=== PATIENT | male | born 1985 | race Caucasian/White ===

== ENCOUNTER 2016-10-15 21:21 | Emergency (ER) | payer MEDICAID ==
[2016-10-15] MEDS ORDERED: FAMOTIDINE 20 MG TABLET PO STA (22:04)
[2016-10-15] MEDS ORDERED: LIDOCAINE VISCOUS 2% 15 ML UDC MM STA (22:04)
[2016-10-15] MEDS ORDERED: MAG HYDROX/AL HYDROX/SIMETH 30 ML UDC PO STA (22:04)
[2016-10-15] MEDS ORDERED: FAMOTIDINE 20 MG TABLET ONE (22:13)
[2016-10-15] MEDS ORDERED: LIDOCAINE VISCOUS 2% 15 ML UDC MM ONE (22:13)
[2016-10-15] MEDS ORDERED: MAG HYDROX/AL HYDROX/SIMETH 30 ML UDC ONE (22:14)
== END 2016-10-15 22:57 | disposition left against medical advice (07) ==
DX: R07.9 Chest pain, unspecified (principal); F17.200 Nicotine dependence, unspecified, uncomplicated; Z53.20 Procedure and treatment not carried out because of patient's decision for unspecified reasons
CPT/HCPCS: 36415; 71020; 80053; 83690; 84484; 85025; 93005; 93010; 99283; 99284; A9270

== ENCOUNTER 2016-10-20 19:48 | Emergency (ER) | payer MEDICAID ==
[2016-10-20] MEDS ORDERED: IOPAMIDOL-300 100 ML VIAL IVP ONE (22:08)
== END 2016-10-20 22:55 | disposition home or self-care (01) ==
DX: R07.89 Other chest pain (principal); F17.200 Nicotine dependence, unspecified, uncomplicated; R94.5 Abnormal results of liver function studies; Z79.899 Other long term (current) drug therapy
CPT/HCPCS: 36415; 71275; 80053; 83690; 84443; 84484; 85025; 85379; 93005; 93010; 99283; 99284; Q9967

== ENCOUNTER 2016-11-04 12:47 | Outpatient (CLI) | payer MEDICAID | END 2016-11-04 12:48 | disposition home or self-care (01) | DX: F10.10 Alcohol abuse, uncomplicated (principal) ==

== ENCOUNTER 2017-01-19 08:00 | Outpatient (CLI) | payer MEDICAID | END 2017-01-19 08:01 | disposition home or self-care (01) | DX: R63.4 Abnormal weight loss (principal) ==

== ENCOUNTER 2017-01-19 16:20 | Outpatient (CLI) | payer MEDICAID | END 2017-01-19 16:21 | disposition home or self-care (01) | DX: M25.562 Pain in left knee (principal) ==

== ENCOUNTER 2017-02-03 09:57 | Emergency (ER) | payer MEDICAID ==
[2017-02-03 10:10] VITALS: BP 119/72
--- NOTE | 2017-02-03 10:57 | ED Physician Documentation ---
PD HPI UPPER EXT INJURY - Stated complaint Stated Complaint: L HAND INJURY - Chief complaint Chief Complaint: Ext Problem - History obtained from History obtained from: Patient, Family - History of Present Illness Location: Right, Finger (index) Type of injury: Blunt / blow Where injury occurred: Home Timing - onset: Yesterday Timing - duration: Days (1) Timing - details: Abrupt onset, Still present Improved by: Rest, Immobilization Worsened by: Moving, Palpating Associated symptoms: Swelling, Other (pain into the forearm). No: Weakness, Numbness, Tingling Contributing factors: No: Anticoagulated Similar symptoms before: Has not had sx before Recently seen: Not recently seen Review of Systems Constitutional: denies: Fever Eyes: denies: Decreased vision Ears: denies: Ear pain Nose: denies: Congestion Respiratory: denies: Dyspnea, Cough GI: denies: Vomiting Musculoskeletal: reports: Extremity pain. denies: Neck pain, Back pain Neurologic: denies: Generalized weakness, Focal weakness, Numbness PD PAST MEDICAL HISTORY - Past Medical History Cardiovascular: Other Respiratory: None Neuro: None Endocrine/Autoimmune: None GI: Ulcers, Other : None HEENT: None Psych: Claustrophobia Musculoskeletal: None Derm: None - Past Surgical History Past Surgical History: Yes General: Appendectomy - Present Medications Home Medications: Ambulatory Orders Medication Instructions Recorded Confirmed Butalb/Acetaminophen/Caffeine 1 each PO Q6H #14 capsule 07/09/16 [Fioricet 50-300-40 mg Capsule] traZODone [Desyrel] 50 mg PO HS 07/09/16 07/09/16 - Allergies Allergies/Adverse Reactions: Allergies Allergy/AdvReac Type Severity Reaction Status Date / Time No Known Drug Allergies Allergy Verified 10/12/15 16:18 - Social History Does the pt smoke?: Yes Smoking Status: Current every day smoker Does the pt drink ETOH?: Yes ETOH Use: Beer Does the pt have substance abuse?: No - Immunizations Immunizations are current?: No Immunizations: TDAP >10years/unknown - POLST Patient has POLST: No PD ED PE NORMAL - Vitals Vital signs reviewed: Yes (normal ) - General General: Alert and oriented X 3, No acute distress, Well developed/nourished - HEENT HEENT: Atraumatic, PERRL, EOMI - Respiratory Respiratory: No respiratory distress - Derm Derm: Normal color, Warm and dry, No rash - Extremities Extremities: No deformity, No edema, Other (There is a small abrasion to the dorsum of the left index finger over the proximal phlange. He is able to move the finger in a ROM with pain and the distal N/V are intact. There is no sign of infection in the soft tissues associated. ) - Neuro Neuro: Alert and oriented X 3, No motor deficit, No sensory deficit, Normal speech - Psych Psych: Normal mood, Normal affect Results - Vitals Vitals: Vital Signs - 24 hr 02/03/17 10:05 Temperature 36.6 C Heart Rate 96 Respiratory 20 Rate Blood Pressure 119/72 O2 Saturation 98 Oxygen O2 Source Room air - Rads (name of study) left fingers Radiology: Prelim report reviewed (Impression: Soft tissue swelling, but no evidence of fracture or radiopaque foreign body.), EMP read indepedently, See rad report Procedures - Splint (location) index finger Splint applied by: Tech Type of splint: Metal foam finger splint Other: Patient tolerated well, No complications, Neurovascular intact, Good alignment Departure - Departure Disposition: 01 Home, Self Care Clinical Impression: Finger contusion Qualifiers: Encounter type: initial encounter Finger: index finger Damage to nail status: without damage Laterality: left Qualified Code(s): S60.022A - Contusion of left index finger without damage to nail, initial encounter Condition: Stable Instructions: ED Contusion Finger Follow-Up: Danii Contreras ARNP [Primary Care Provider] -
--- NOTE | 2017-02-03 11:33 | XRAY Preliminary Report ---
Exam: XR Finger(s) LT IMPRESSION: Soft tissue swelling, but no evidence of fracture or radiopaque foreign body. [facility] SITE ID: [id number]
--- NOTE | 2017-02-03 11:36 | XRAY Report ---
EXAM: LEFT SECOND DIGIT RADIOGRAPHY EXAM DATE: 02/03/2017 11:20 AM. CLINICAL HISTORY: Prox index finger contusion . COMPARISON: 05/27/2009. TECHNIQUE: 3 views. FINDINGS: Bones: Normal. No fracture or bone lesion. Joints: Normal. No subluxations. Soft Tissues: Proximal soft tissue swelling is present. IMPRESSION: Soft tissue swelling, but no evidence of fracture or radiopaque foreign body. [facility] Referring Provider Line: [phone] SITE ID: [id number]
== END 2017-02-03 11:43 | disposition home or self-care (01) ==
LOC: ED 09:57
DX: S60.022A Contusion of left index finger without damage to nail, initial encounter (principal); W22.8XXA Striking against or struck by other objects, initial encounter; Y92.019 Unspecified place in single-family (private) house as the place of occurrence of the external cause
CPT/HCPCS: 29130; 73140; 99283

== ENCOUNTER 2017-10-20 15:03 | Outpatient (CLI) | payer MEDICAID ==
[2017-10-20 15:47] LABS: HGB - HEMOGLOBIN 13.8 g/dL (14.0-18.0); MEAN CORPUSCULAR HEMOGLOBIN 32.4 pg (27.0-31.0); MEAN CORPUSCULAR HGB CONC 34.3 g/dL (32.0-36.0); MEAN CORPUSCULAR VOLUME 94.5 fL (80.0-94.0); MEAN PLATELET VOLUME 8.5 fL (7.4-11.4); RED BLOOD COUNT 4.26 10^6/uL (4.70-6.10); RED CELL DISTRIBUTION WIDTH 12.8 % (12.0-15.0); WHITE BLOOD COUNT 6.8 x10^3/uL (4.8-10.8)
[2017-10-20 15:58] LABS: % IRON SATURATION 29 % (20-50); ALBUMIN 4.1 g/dL (3.2-5.5); ALBUMIN/GLOBULIN RATIO 1.4 (1.0-2.2); ALKALINE PHOSPHATASE 40 IU/L (42-121); ALT ALANINE AMINOTRANSFERASE 28 IU/L (10-60); AST ASPARTATE AMINOTRANSFERASE 30 IU/L (10-42); BILIRUBIN,TOTAL 0.5 mg/dL (0.2-1.0); BUN - BLOOD UREA NITROGEN 16 mg/dL (6-20); CALCIUM 8.8 mg/dL (8.5-10.3); CARBON DIOXIDE - CO2 26 mmol/L (21-32); CHLORIDE 103 mmol/L (101-111); GFR - MDRD 86 (>89); GLUCOSE 81 mg/dL (70-100); IRON 96 ug/dL (45-182); SODIUM 139 mmol/L (135-145); TOTAL IRON BINDING CAPACITY 330 ug/dL (250-450); TOTAL PROTEIN 7.1 g/dL (6.7-8.2); TRANSFERRIN 236 mg/dL (180-329)
[2017-10-20 16:47] LABS: CRP - C-REACTIVE PROTEIN < 1.0 mg/dL (0-1.0)
[2017-10-20 16:50] LABS: RHEUMATOID FACTOR NEGATIVE (Negative)
--- NOTE | 2017-10-21 10:18 | Ultrasound Report ---
SCROTAL DUPLEX: 10/20/2017 CLINICAL INDICATION: Right-sided pain. TECHNIQUE: Real-time sonographic vascular imaging was performed by the head of conservation through the scrotum utilizing both color-flow and Doppler spectral analysis. Multiple account executive sales representative static images were saved for review. FINDINGS: The right testicle measures 4.7 x 3.4 x 2.2 cm, and the left testicle measures 4.7 x 3.0 x 2.0 cm. Both testicles demonstrate normal flow and echotexture. Trace hydroceles are present. A 3 mm right epididymal head cyst is noted. No varicocele or hernia is identified. IMPRESSION: TRACE BILATERAL HYDROCELES. NO EVIDENCE OF TESTICULAR TORSION OR MASS. TD: 10/21/2017 10:16
[2017-10-22 13:36] LABS: ANA SCREEN NEGATIVE (NEGATIVE)
== END 2017-10-20 15:04 | disposition home or self-care (01) ==
LOC: DI 15:03
PROVIDERS: ATTEND Nurse Practitioner Family
DX: N43.3 Hydrocele, unspecified (principal); M25.50 Pain in unspecified joint
CPT/HCPCS: 36415; 76870; 80053; 83540; 84466; 85651; 86038; 86140; 86430; 93975

== ENCOUNTER 2017-10-23 15:03 | Outpatient (CLI) | payer MEDICAID ==
--- NOTE | 2017-10-23 17:36 | XRAY Report ---
TWO VIEW LEFT ELBOW: 10/23/2017 CLINICAL INDICATION: Arthralgia. FINDINGS: Frontal and lateral views of the left elbow demonstrate no evidence of fracture or dislocation. The joint spaces are preserved. No effusion is present. IMPRESSION: NORMAL LEFT ELBOW. TD: 10/23/2017 17:20
== END 2017-10-23 15:04 | disposition home or self-care (01) ==
LOC: DI.S 15:03
PROVIDERS: ATTEND Nurse Practitioner Family
DX: M25.522 Pain in left elbow (principal)

== ENCOUNTER 2017-10-26 08:12 | Outpatient (CLI) | payer MEDICAID ==
[2017-10-26 12:35] LABS: HB2 TOTAL 16.4 g/dL; HEMOGLOBIN A1C 0.59 g/dL; HEMOGLOBIN A1C % 5.4 % (4.6-6.2)
[2017-10-26 12:38] LABS: THYROID STIMULATING HORMONE 1.62 uIU/mL (0.34-5.60)
== END 2017-10-26 08:13 | disposition home or self-care (01) ==
LOC: LAB.F 08:12
PROVIDERS: ATTEND Nurse Practitioner Family
DX: D64.9 Anemia, unspecified (principal); M25.50 Pain in unspecified joint; R61 Generalized hyperhidrosis; R63.4 Abnormal weight loss
CPT/HCPCS: 36415; 82607; 83036; 84403; 84443

== ENCOUNTER 2017-12-01 08:06 | Outpatient (CLI) | payer MEDICAID ==
--- NOTE | 2017-12-01 10:59 | MRI Report ---
EXAM: LEFT ELBOW MRI WITHOUT CONTRAST EXAM DATE: 12/01/2017 09:01 AM. CLINICAL HISTORY: Chronic left elbow pain. COMPARISON: 10/23/2017 radiograph. TECHNIQUE: Multiplanar, multisequence T1-weighted and fluid-sensitive sequences of the elbow without contrast. Other: None. FINDINGS: Bones: Edema in the olecranon is presumed to represent bony contusion. No fractures. Articular Cartilage: Unremarkable. Ligaments: The ulnar collateral, lateral ulnar collateral, radial collateral, and annular ligaments a re intact. Tendons: The common flexor tendon origin is unremarkable. There is a intrasubstance tear of the commo n extensor tendon origin that is 3 mm in length and involves 50% of the cross-sectional area. Edema i s also seen in the tendon. The distal biceps, brachialis, and triceps tendons are unremarkable. Musculature: No edema or fatty atrophy. Other: The cubital tunnel and ulnar nerve are unremarkable. No effusion. The subcutaneous tissues are unremarkable. IMPRESSION: 1. Bony contusion of the olecranon. 2. Small partial tear of the common extensor tendon origin with tendinosis. [facility] MUSCULOSKELETAL [facility]IOLOGY SECTION Referring Provider Line: [phone] SITE ID: [id number]
== END 2017-12-01 08:07 | disposition home or self-care (01) ==
LOC: DI 08:06
PROVIDERS: ATTEND Orthopaedic Surgery
DX: S56.512A Strain of other extensor muscle, fascia and tendon at forearm level, left arm, initial encounter (principal); S50.12XA Contusion of left forearm, initial encounter

== ENCOUNTER 2018-02-05 13:14 | Outpatient (CLI) | payer MEDICAID ==
[2018-02-05 18:56] LABS: BASOPHILS # (AUTO) 0.1 10^3/uL (0.0-0.1); BASOPHILS % (AUTO) 1.2 %; EOSINOPHILS # (AUTO) 0.1 10^3/uL (0.0-0.7); EOSINOPHILS % (AUTO) 1.2 %; HGB - HEMOGLOBIN 15.2 g/dL (14.0-18.0); LYMPHOCYTES # (AUTO) 0.9 10^3/uL (1.5-3.5); LYMPHOCYTES % (AUTO) 17.5 %; MEAN CORPUSCULAR HEMOGLOBIN 30.4 pg (27.0-31.0); MEAN CORPUSCULAR HGB CONC 32.8 g/dL (32.0-36.0); MEAN CORPUSCULAR VOLUME 92.8 fL (80.0-94.0); MEAN PLATELET VOLUME 8.6 fL (7.4-11.4); MONOCYTES # (AUTO) 0.5 10^3/uL (0.0-1.0); MONOCYTES % (AUTO) 10.3 %; NEUTROPHILS # (AUTO) 3.5 10^3/uL (1.5-6.6); NEUTROPHILS % (AUTO) 69.8 %; PLT - PLATELET COUNT 259 10^3/uL (130-450); RED CELL DISTRIBUTION WIDTH 13.3 % (12.0-15.0)
[2018-02-05 18:59] LABS: ALBUMIN 4.2 g/dL (3.2-5.5); ALBUMIN/GLOBULIN RATIO 1.3 (1.0-2.2); BILIRUBIN,TOTAL 0.8 mg/dL (0.2-1.0); CALCIUM 9.2 mg/dL (8.5-10.3); TOTAL PROTEIN 7.4 g/dL (6.7-8.2)
[2018-02-06 12:51] LABS: HEPATITIS C ANTIBODY NON-REACTIVE (NON-REACTIVE)
[2018-02-06 17:01] LABS: HIV AG/AB 4TH GEN NON-REACTIVE (NON-REACTIVE)
[2018-02-11 12:26] LABS: HSV 2 IGG TYPE SPECIFIC AB <0.90 index
== END 2018-02-05 13:15 | disposition home or self-care (01) ==
LOC: LAB.F 13:14
PROVIDERS: ATTEND Nurse Practitioner Family
DX: D64.9 Anemia, unspecified (principal); Z11.3 Encounter for screening for infections with a predominantly sexual mode of transmission
CPT/HCPCS: 36415; 80053; 81599; 85025; 86592; 86695; 86696; 86803; 87389; 87491; 87591

== ENCOUNTER 2018-07-30 00:15 | Emergency (ER) | payer MEDICAID ==
[2018-07-30] MEDS ORDERED: PROPARACAINE 0.5% OPHTH DROPS 15 ML RIGHTEYE STA (00:44)
--- NOTE | 2018-07-30 01:16 | ED Physician Documentation ---
PD HPI OPHTHO - Stated complaint Stated Complaint: R EYE PX - Chief complaint Chief Complaint: Heent - History obtained from History obtained from: Patient - History of Present Illness Timing - onset: Enter time (14:00), Yesterday Timing - details: Gradual onset Pain level now: 8 Location: Right Quality / character: Aching Associated symptoms: FB sensation Contributing factors: No: Exposed to conjunctivitis, Recent URI, UV light (welding etc), Wears glasses, Wears contacts Similar symptoms before: Has not had sx before Recently seen: Not recently seen - Additional information Additional information: FB sensation right eye since 2 PM yesterday without injury or recollection of FB getting into the eye Review of Systems Eyes: reports: Other (FB sensation). denies: Loss of vision, Decreased vision, Photophobia, Discharge, Irritation PD PAST MEDICAL HISTORY - Past Medical History Past Medical History: Yes Cardiovascular: Other Respiratory: None Endocrine/Autoimmune: None GI: Ulcers, Other : None HEENT: None Psych: Claustrophobia Musculoskeletal: None Derm: None - Past Surgical History Past Surgical History: Yes General: Appendectomy - Present Medications Home Medications: Ambulatory Orders Medication Instructions Recorded Confirmed Hydrocodone/Acetaminophen 1 - 2 each PO Q6H PRN #14 tablet 07/30/18 [Hydrocodon-Acetaminophen 5-325] - Allergies Allergies/Adverse Reactions: Allergies Allergy/AdvReac Type Severity Reaction Status Date / Time No Known Drug Allergies Allergy Verified 07/30/18 00:22 - Social History Does the pt smoke?: Yes Smoking Status: Current every day smoker Does the pt drink ETOH?: Yes Does the pt have substance abuse?: No - Immunizations Immunizations are current?: No Immunizations: TDAP >10years/unknown - POLST Patient has POLST: No PD ED PE NORMAL - Vitals Vital signs reviewed: Yes - General General: Alert and oriented X 3, No acute distress, Well developed/nourished - HEENT HEENT: PERRL, EOMI PD ED PE EXPANDED - HEENT HEENT Visual: 1 - deformity (punctate but strong fluorescein uptake) 2 - swelling (mild, hazy fluorescein uptake) - Eyes Eyes: No: Corneal FB (right eye : no FB including with lower lid retraction and upper lid eversion), Hyphema Results - Vitals Vitals: Vital Signs - 24 hr 07/30/18 07/30/18 00:17 02:03 Temperature 36.7 C Heart Rate 94 88 Respiratory 16 16 Rate Blood Pressure 124/78 128/78 O2 Saturation 97 96 Oxygen O2 Source Room air PD MEDICAL DECISION MAKING - ED course Complexity details: considered differential, d/w patient Departure - Departure Disposition: 01 Home, Self Care Clinical Impression: Corneal abrasion Condition: Good Instructions: ED Eye Injury Corneal Abrasion Follow-Up: [facility] [Provider Group] [facility] [Provider Group] Prescriptions: Hydrocodone/Acetaminophen [Hydrocodon-Acetaminophen 5-325] 1 - 2 each PO Q6H PRN #14 tablet PRN Reason: pain Comments: Use the antibiotic drops as follows: 1 drop in right eye four times per day for 5 days Discharge Date/Time: 07/30/18 02:05
[2018-07-30] MEDS ORDERED: POLYMYXIN B/TRIMETH OPHTH DROPS RIGHTEYE STA (01:37)
[2018-07-30] MEDS ORDERED: HYDROcod/ACETAM 5/325 MG TABLET PO STA (01:39)
[2018-07-30 02:04] VITALS: BP 128/78
== END 2018-07-30 02:05 | disposition home or self-care (01) ==
LOC: ED 00:15
DX: S05.01XA Injury of conjunctiva and corneal abrasion without foreign body, right eye, initial encounter (principal); W22.8XXA Striking against or struck by other objects, initial encounter; F17.200 Nicotine dependence, unspecified, uncomplicated
CPT/HCPCS: 99283; A9270; J3490

== ENCOUNTER 2019-03-18 17:58 | Emergency (ER) | payer MEDICAID ==
[2019-03-18 18:13] VITALS: BP 124/89
[2019-03-18] MEDS ORDERED: TETANUS/DIPHTHERIA/PERTUSSIS 0.5 ML SYRINGE IM ONE (18:30)
[2019-03-18] MEDS ORDERED: BUFFERED LIDOCAINE 10 ML SYRINGE SUBQ STA (18:30)
--- NOTE | 2019-03-18 18:31 | ED Physician Documentation ---
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 Tetanus is unknown.) Review of Systems Constitutional: reports: Reviewed and negative Cardiac: reports: Reviewed and negative Respiratory: reports: Reviewed and negative PD PAST MEDICAL HISTORY - Past Medical History Past Medical History: Yes Cardiovascular: Other Respiratory: None Endocrine/Autoimmune: None GI: Ulcers, Other : None HEENT: None Psych: Claustrophobia Musculoskeletal: None Derm: None - Past Surgical History Past Surgical History: Yes General: Appendectomy, Hiatal hernia repair - Allergies Allergies/Adverse Reactions: Allergies Allergy/AdvReac Type Severity Reaction Status Date / Time No Known Drug Allergies Allergy Verified 03/18/19 18:09 - Social History Does the pt smoke?: Yes Smoking Status: Current every day smoker Does the pt drink ETOH?: Yes Does the pt have substance abuse?: No - Immunizations Immunizations are current?: No Immunizations: TDAP >10years/unknown - POLST Patient has POLST: No PD ED PE NORMAL - Vitals Vital signs reviewed: Yes - General General: Alert and oriented X 3, Other (smells of etoh) - Extremities Extremities: Other (Is 1.5 cm laceration the interphalangeal joint of the left thumb on the radial side with intact sensation distal to this.) - Neuro Neuro: Alert and oriented X 3, Normal speech Results - Vitals Vitals: Vital Signs - 24 hr 03/18/19 18:07 Temperature 36.6 C Heart Rate 78 Respiratory 16 Rate Blood Pressure 124/89 H O2 Saturation 97 Oxygen O2 Source Room air Procedures - Laceration (location) L thumb Length in cm: 1.5 Wound type: Curved, Into subcut fat Neurovascular status: Sensory intact, Motor intact, Vascular intact Tendon involvement: Tendon intact Anesthesia: Lidocaine 1%, With bicarb Wound Preparation: Hibiclens, Irrigated copiously NS Skin layer closure: Nylon, Interrupted, Size #-0 - enter number (4-0), Sutures - enter # (5) Other: Tetanus booster given Complexity: Simple Departure - Departure Disposition: 01 Home, Self Care Clinical Impression: Laceration Condition: Good Record reviewed to determine appropriate education?: Yes Health Concerns: laceration Plan of Treatment: Come back for any signs of infection which would include: Redness, swelling, drainage, increased pain, or fevers. You can wash it soap and water. Keep it covered and moist with bacitracin ointment which is available over the counter; avoid neosporin. Follow-up with your physician in 14 days for suture removal. Care Goals: wound care Assessment: as above Instructions: ED Laceration Hand
[2019-03-18] MEDS ORDERED: IBUPROFEN 800 MG TABLET PO STA (19:01)
== END 2019-03-18 19:08 | disposition home or self-care (01) ==
LOC: ED 17:58
DX: S61.012A Laceration without foreign body of left thumb without damage to nail, initial encounter (principal); W45.8XXA Other foreign body or object entering through skin, initial encounter; Y92.009 Unspecified place in unspecified non-institutional (private) residence as the place of occurrence of the external cause; F17.200 Nicotine dependence, unspecified, uncomplicated; Z23 Encounter for immunization
CPT/HCPCS: 12001; 90471; 90715; 99283; A9270

== ENCOUNTER 2021-08-22 09:10 | Outpatient (CLI) | payer MEDICAID ==
[2021-08-22 09:25] LABS: BASOPHILS # (AUTO) 0.1 10^3/uL (0.0-0.1); BASOPHILS % (AUTO) 1.4 %; EOSINOPHILS # (AUTO) 0.2 10^3/uL (0.0-0.7); EOSINOPHILS % (AUTO) 2.9 %; HCT - HEMATOCRIT 44.3 % (42.0-52.0); HGB - HEMOGLOBIN 14.5 g/dL (14.0-18.0); LYMPHOCYTES # (AUTO) 1.4 10^3/uL (1.5-3.5); LYMPHOCYTES % (AUTO) 20.5 %; MEAN CORPUSCULAR HEMOGLOBIN 30.6 pg (27.0-31.0); MEAN CORPUSCULAR HGB CONC 32.7 g/dL (32.0-36.0); MEAN CORPUSCULAR VOLUME 93.5 fL (80.0-94.0); MEAN PLATELET VOLUME 10.8 fL (7.4-11.4); MONOCYTES # (AUTO) 0.8 10^3/uL (0.0-1.0); MONOCYTES % (AUTO) 12.7 %; NEUTROPHILS # (AUTO) 4.2 10^3/uL (1.5-6.6); NEUTROPHILS % (AUTO) 62.3 %; PLT - PLATELET COUNT 240 10^3/uL (130-450); RED BLOOD COUNT 4.74 10^6/uL (4.70-6.10); WHITE BLOOD COUNT 6.6 x10^3/uL (4.8-10.8)
[2021-08-22 10:11] LABS: ALBUMIN 3.8 g/dL (3.2-5.5); ALBUMIN/GLOBULIN RATIO 1.3 (1.0-2.2); BILIRUBIN,TOTAL 0.9 mg/dL (0.2-1.0); POTASSIUM 4.7 mmol/L (3.5-5.0); TOTAL PROTEIN 6.8 g/dL (6.7-8.2)
== END 2021-08-22 09:11 | disposition home or self-care (01) ==
LOC: LAB 09:10 → LAB.R 09:11
PROVIDERS: ATTEND Registered Nurse
DX: R79.89 Other specified abnormal findings of blood chemistry (principal); R94.6 Abnormal results of thyroid function studies; R68.89 Other general symptoms and signs
CPT/HCPCS: 80053; 84443; 85025

== ENCOUNTER 2022-03-20 13:10 | Outpatient (CLI) | payer MEDICAID, OTHER | END 2022-03-20 13:11 | disposition EMS.NT | LOC: EMS 13:10 | DX: R00.0 Tachycardia, unspecified (principal) ==

== ENCOUNTER 2022-03-20 14:16 | Emergency (ER) | payer MEDICAID, OTHER ==
--- NOTE | 2022-03-20 14:21 | ED Physician Documentation ---
PD HPI CHEST PAIN - Stated complaint Stated Complaint: FIT FOR CONFINMENT - History obtained from History obtained from: Patient - Additional information Additional information: 36-year-old gentleman was running from police today after using methamphetamines and developed a sensation like his chest was going to explode. Started about an hour ago. States he has a history of arrhythmia but no other heart issues. Review of Systems Eyes: reports: Reviewed and negative Cardiac: reports: Chest pain / pressure. denies: Palpitations Respiratory: denies: Dyspnea, Cough PD PAST MEDICAL HISTORY - Past Medical History Cardiovascular: Other Respiratory: None Endocrine/Autoimmune: None GI: Ulcers, Other : None HEENT: None Psych: Claustrophobia Musculoskeletal: None Derm: None - Past Surgical History Past Surgical History: Yes General: Appendectomy, Hiatal hernia repair - Allergies Allergies/Adverse Reactions: Allergies Allergy/AdvReac Type Severity Reaction Status Date / Time No Known Drug Allergies Allergy Verified 03/20/22 14:19 - Social History Does the pt smoke?: Yes Smoking Status: Current every day smoker Does the pt drink ETOH?: Yes Does the pt have substance abuse?: No - Immunizations Immunizations are current?: No Immunizations: TDAP >10years/unknown - POLST Patient has POLST: No PD ED PE NORMAL - Vitals Vital signs reviewed: Yes - General General: Alert and oriented X 3, Other (He is in shackles, in no distress) - Neck Neck: Supple, no meningeal sign, No bony TTP - Cardiac Cardiac: RRR, No murmur - Respiratory Respiratory: No respiratory distress, Clear bilaterally - Abdomen Abdomen: Non tender - Extremities Extremities: No edema, No calf tenderness / cord - Neuro Neuro: Alert and oriented X 3, Normal speech Results - Vitals Vitals: Vital Signs - 24 hr 03/20/22 03/20/22 14:19 14:25 Temperature 36.5 C 36.5 C Heart Rate 86 86 Respiratory 16 16 Rate Blood Pressure 112/86 H 112/82 H O2 Saturation 94 94 Oxygen O2 Source Room air - EKG (time done) 1435 Rate: Rate (enter#) (86) Rhythm: NSR [place]: Normal Intervals: Normal NC QRS: LVH Ischemia: ST elevation c/w repol. No: ST depression - Rads (name of study) 1v chest Radiology: EMP read contemporaneously (NAD) PD MEDICAL DECISION MAKING - ED course ED course: 36-year-old gentleman developed atypical chest pain while running from the [place] ice. He appears well and has a nonischemic EKG and clear chest x-ray. [facility]. I attempted to call the penitentiary nurse practitioner for a warm handoff and had to leave a voicemail. Departure - Departure Disposition: 01 Home, Self Care Clinical Impression: Atypical chest pain Condition: Good Record reviewed to determine appropriate education?: Yes Instructions: ED Chest Pain Atypical Unkn Cause Comments: Follow-up with penitentiary nurse practitioner, he may have issues with withdrawals. Return for new or worsening symptoms. Discharge Date/Time: 03/20/22 15:28
[2022-03-20 14:27] VITALS: BP 112/82
--- NOTE | 2022-03-20 15:23 | XRAY Report ---
PROCEDURE: Chest 1 View X-Ray INDICATIONS: chest pain TECHNIQUE: One view of the chest was acquired. COMPARISON: Chest x-ray 10/15/2016 FINDINGS: Surgical changes and devices: None. Lungs and pleura: No pleural effusions or pneumothorax. Lungs are clear. Mediastinum: Mediastinal contours appear normal. Heart size is normal. Bones and chest wall: No suspicious bony lesions. Overlying soft tissues appear unremarkable. IMPRESSION: No acute pulmonary process. Reviewed by: Twila Hurst MD on 03/20/2022 3:21 PM PDT Approved by: Twila Hurst MD on 03/20/2022 3:21 PM PDT Station ID: [id number]
== END 2022-03-20 15:28 | disposition home or self-care (01) ==
LOC: EDUNIT# → ED 14:16
DX: Z02.89 Encounter for other administrative examinations (principal); R07.89 Other chest pain; F17.200 Nicotine dependence, unspecified, uncomplicated
CPT/HCPCS: 93005; 99282; 99283

== ENCOUNTER 2022-04-10 11:04 | Outpatient (CLI) | payer OTHER ==
[2022-04-10 11:15] LABS: BASOPHILS # (AUTO) 0.1 10^3/uL (0.0-0.1); BASOPHILS % (AUTO) 0.9 %; EOSINOPHILS # (AUTO) 0.2 10^3/uL (0.0-0.7); EOSINOPHILS % (AUTO) 2.4 %; HCT - HEMATOCRIT 44.7 % (42.0-52.0); HGB - HEMOGLOBIN 14.5 g/dL (14.0-18.0); LYMPHOCYTES # (AUTO) 1.8 10^3/uL (1.5-3.5); LYMPHOCYTES % (AUTO) 23.7 %; MEAN CORPUSCULAR HEMOGLOBIN 30.7 pg (27.0-31.0); MEAN CORPUSCULAR HGB CONC 32.4 g/dL (32.0-36.0); MEAN CORPUSCULAR VOLUME 94.7 fL (80.0-94.0); MEAN PLATELET VOLUME 10.6 fL (7.4-11.4); MONOCYTES # (AUTO) 0.6 10^3/uL (0.0-1.0); MONOCYTES % (AUTO) 7.9 %; NEUTROPHILS # (AUTO) 4.9 10^3/uL (1.5-6.6); NEUTROPHILS % (AUTO) 64.8 %; PLT - PLATELET COUNT 203 10^3/uL (130-450); RED BLOOD COUNT 4.72 10^6/uL (4.70-6.10); RED CELL DISTRIBUTION WIDTH 13.8 % (12.0-15.0); WHITE BLOOD COUNT 7.5 x10^3/uL (4.8-10.8)
[2022-04-10 13:29] LABS: ALBUMIN 3.9 g/dL (3.2-5.5); ALBUMIN/GLOBULIN RATIO 1.6 (1.0-2.2); BILIRUBIN,TOTAL 0.6 mg/dL (0.2-1.0); POTASSIUM 4.6 mmol/L (3.5-5.0); TOTAL PROTEIN 6.4 g/dL (6.7-8.2)
== END 2022-04-10 11:05 | disposition home or self-care (01) ==
LOC: LAB.R 11:04
PROVIDERS: ATTEND Registered Nurse
DX: R79.89 Other specified abnormal findings of blood chemistry (principal); R68.89 Other general symptoms and signs; R94.6 Abnormal results of thyroid function studies
CPT/HCPCS: 80053; 84443; 85025